=== PATIENT | female | born 1950 | race Caucasian/White ===

== ENCOUNTER 2018-01-25 15:06 | Inpatient (IN) | payer MEDICARE, OTHER ==
[2018-01-24 22:00] VITALS: BP 139/80
[~2018-01-25] VITALS: Ht 172.7 cm; Wt 89.0 kg
[~2018-01-25 15:06] MED LIST: BACDS; CHOL378P; CYCL-1; DICY10CA88; HYDR-3972; LOSA25TA12; ONDA4TAB12; PROP20TA6
[2018-01-25 16:19] LABS: BASOPHILS % (AUTO) 0.6 % (0-1); EOSINOPHILS # (AUTO) 0.1 X10'3 (0-0.9); EOSINOPHILS % (AUTO) 2.2 % (0-6); HEMATOCRIT 41.3 % (35.0-45.0); LYMPHOCYTES # (AUTO) 1.2 X10'3 (1.1-4.8); LYMPHOCYTES % (AUTO) 18.1 % (21-51); MEAN CORPUSCULAR HEMOGLOBIN 30.2 PG (27.0-31.0); MEAN CORPUSCULAR HGB CONC 33.9 % (33.0-36.5); MEAN PLATELET VOLUME 7.8 FL (7.4-10.4); MONOCYTES # (AUTO) 0.4 X10'3 (0-0.9); MONOCYTES % (AUTO) 5.8 % (2-12); NEUTROPHILS # (AUTO) 4.7 X10'3 (1.8-7.7); NEUTROPHILS % (AUTO) 73.3 % (42-75); PLATELET COUNT 308 X10'3 (140-440); RED BLOOD COUNT 4.64 X10'6 (4.20-5.60); RED CELL DISTRIBUTION WIDTH 13.6 % (11.5-14.5); WHITE BLOOD COUNT 6.4 X10'3 (4.5-11.0)
[2018-01-25 16:35] LABS: ALANINE AMINOTRANSFERASE 44 U/L (12-78); ALBUMIN 3.7 G/DL (3.4-5.0); ALBUMIN/GLOBULIN RATIO 1.1 (1.1-1.5); ALKALINE PHOSPHATASE 91 IU/L (46-116); ANION GAP 9 (8-16); ASPARTATE AMINO TRANSFERASE 18 U/L (10-37); BILIRUBIN,TOTAL 0.3 MG/DL (0.1-1.0); BLOOD UREA NITROGEN 21 MG/DL (7-18); BUN/CREATININE RATIO 22.8 (6.6-38.0); CALCIUM 9.6 MG/DL (8.5-10.1); CHLORIDE 105 MMOL/L (99-107); CREATININE 0.92 MG/DL (0.40-0.90); GLUCOSE 111 MG/DL (70-104); POTASSIUM 3.8 MMOL/L (3.5-5.1); SODIUM 142 MMOL/L (135-145); TOTAL CARBON DIOXIDE 28.1 MMOL/L (24-32); TOTAL PROTEIN 7.1 G/DL (6.4-8.2); eGFR 61 ML/MIN
[2018-01-25 16:42] LABS: PARTIAL THROMBOPLASTIN TIME 24 SECONDS (22-32); PROTHROMBIN TIME 9.9 SECONDS (9.0-12.0)
[2018-01-25 17:48] LABS: LIPASE 154 U/L (73-393)
[2018-01-25] MEDS ORDERED: LIDOcaine Viscous 15ml cup PO ONE (19:15)
[2018-01-25] MEDS ORDERED: magnesium hydroxide 30ml (MOM) UD suspension PO ONE (19:15)
[2018-01-25] MEDS ORDERED: famotidine 20mg tablet PO ONE (19:15)
[2018-01-25] MEDS ORDERED: aspirin 325mg tablet PO ONE (19:50)
[2018-01-25] MEDS ORDERED: normal saline 1000ml 1,000 ML IV SCH (21:11)
[2018-01-25] MEDS ORDERED: mag hydrox/Alum hydrox/simeth 30ml oral suspension PO PRN (21:15)
[2018-01-25] MEDS ORDERED: morphine 2 MG/ML inj. syringe IV PRN (21:15)
[2018-01-25] MEDS ORDERED: ondansetron/PF 4mg/2ml inj IV PRN (21:15)
[2018-01-25] MEDS ORDERED: magnesium hydroxide 30ml (MOM) UD suspension PO PRN (21:15)
[2018-01-25] MEDS ORDERED: metoprolol tartrate 50mg tablet PO ONE (21:15)
[2018-01-25] MEDS ORDERED: acetaminophen 325mg tablet PO PRN (21:15)
[2018-01-25 22:00] VITALS: BP 139/80
[2018-01-25 22:44] LABS: HEMOGLOBIN A1C 5.5 % (4.5-6.2)
[2018-01-26] VITALS (12 sets, daily range): BP systolic 105–135; BP diastolic 65–91
[2018-01-26 07:38] LABS: ALANINE AMINOTRANSFERASE 38 U/L (12-78); ALBUMIN 3.2 G/DL (3.4-5.0); ALBUMIN/GLOBULIN RATIO 1.1 (1.1-1.5); ALKALINE PHOSPHATASE 66 IU/L (46-116); ANION GAP 7 (8-16); ASPARTATE AMINO TRANSFERASE 21 U/L (10-37); BILIRUBIN,TOTAL 0.6 MG/DL (0.1-1.0); BLOOD UREA NITROGEN 18 MG/DL (7-18); BUN/CREATININE RATIO 21.7 (6.6-38.0); CALCIUM 9.2 MG/DL (8.5-10.1); CHLORIDE 105 MMOL/L (99-107); CREATININE 0.83 MG/DL (0.40-0.90); GLUCOSE 105 MG/DL (70-104); POTASSIUM 4.1 MMOL/L (3.5-5.1); SODIUM 141 MMOL/L (135-145); TOTAL CARBON DIOXIDE 28.6 MMOL/L (24-32); TOTAL PROTEIN 6.1 G/DL (6.4-8.2); eGFR 69 ML/MIN
[2018-01-26 07:41] LABS: CHOL/HDL RATIO 3.7 (0.00-4.99); CHOLESTEROL 177 MG/DL (0-200); HDL CHOLESTEROL 48 MG/DL (35-60); LDL CHOLESTEROL 112 MG/DL (50-100); TRIGLYCERIDES 155 MG/DL (20-135)
[2018-01-26] MEDS ORDERED: aspirin 325mg tablet, delayed-release (Ecotrin) PO SCH (08:00)
[2018-01-26] MEDS ORDERED: heparin, porcine 5000 units/ml vial SQ SCH (08:00)
[2018-01-26] MEDS ORDERED: nitroGLYCERIN 0.4mg SUBLingual tab SL PRN (08:10)
[2018-01-26] MEDS ORDERED: metoprolol tartrate 1mg/ml inj IV PRN (08:10)
[2018-01-26] MEDS ORDERED: aminophylline 250mg/10ml inj. IV PRN (08:10)
[2018-01-26] MEDS ORDERED: regadenoson 0.4mg/5ml syringe IV PRN (08:10)
[2018-01-26] MEDS ORDERED: potassium Cl 20 mEq SR tablet PO PRN ×2 (10:50)
[2018-01-26] MEDS ORDERED: magnesium 4gm in 100ml NS 100 ML IV PRN (10:50)
[2018-01-26] MEDS ORDERED: magnesium Cl slow-release 64mg tablet PO PRN (10:50)
[2018-01-26] MEDS ORDERED: potassium Cl 40MEQ/NS 500ml 500 ML IV PRN ×2 (10:50)
[2018-01-26] MEDS ORDERED: atorvastatin 20mg tablet PO SCH (10:55)
[2018-01-26] MEDS ORDERED: regadenoson 0.4mg/5ml syringe IV ONE (13:22)
[2018-01-26] MEDS ORDERED: aminophylline inj. 0 ML IV ONE (13:22)
[2018-01-26] MEDS ORDERED: CARV-49 PO (15:32)
[2018-01-26] MEDS ORDERED: PANT40TA4 PO (15:32)
[2018-01-26] MEDS ORDERED: ATOR20TA66 PO (15:32)
[2018-01-26] MEDS ORDERED: ASPI-611 PO (15:32)
[2018-01-26] MEDS ORDERED: LOSA50TA21 PO (15:32)
== END 2018-01-26 16:56 | disposition home or self-care (01) | DRG 392 ==
LOC: ER 15:06 → ED HOLD 21:11 → PCU 3S 23:00
PROVIDERS: ADMIT Internal Medicine; ATTEND Family Medicine
PROC: 4A02XM4 Measurement of Cardiac Total Activity, External Approach (ICD-10-PCS; principal; 2018-01-26)
PROC: 3E033HZ Introduction of Radioactive Substance into Peripheral Vein, Percutaneous Approach (ICD-10-PCS; 2018-01-26)
DX: K21.9 Gastro-esophageal reflux disease without esophagitis (principal); E78.00 Pure hypercholesterolemia, unspecified; E78.5 Hyperlipidemia, unspecified; I10 Essential (primary) hypertension; F17.210 Nicotine dependence, cigarettes, uncomplicated; I25.10 Atherosclerotic heart disease of native coronary artery without angina pectoris; M47.816 Spondylosis without myelopathy or radiculopathy, lumbar region; Z90.710 Acquired absence of both cervix and uterus; Z88.0 Allergy status to penicillin; Z79.899 Other long term (current) drug therapy; Z86.010 Personal history of colon polyps; Z82.49 Family history of ischemic heart disease and other diseases of the circulatory system; Z71.6 Tobacco abuse counseling
CPT/HCPCS: 36415; 71045; 78452; 80053; 80061; 83036; 83690; 84484; 85025; 85610; 85730; 87070; 93005; 93017; 93306; 99285; A9500; J0280; J1644; J2270

== ENCOUNTER 2021-06-08 05:31 | Day surgery (SDC) | payer MEDICARE, OTHER ==
[2021-05-31 13:23] LABS: CLARITY,URINE CLEAR (Clear); COLOR,URINE YELLOW (Yellow); GLUCOSE, URINE NEGATIVE (Neg); KETONES,URINE TRACE mg/dl (Neg); LEUKOCYTE ESTERASE ,URINE NEGATIVE (Neg); NITRITES, URINE NEGATIVE (Neg); OCCULT BLOOD,URINE NEGATIVE (Neg); PH,URINE 5.5 (4.8-8.0); PROTEIN,URINE NEGATIVE (Neg); UROBILINOGEN,URINE 0.2 E.U/dL (0.2-1.0)
[2021-05-31 13:25] LABS: UA COLLECTION TYPE CLN CATCH MIDSTREAM
[2021-05-31 13:27] LABS: BASOPHILS % (AUTO) 0.3 % (0-1); EOSINOPHILS % (AUTO) 0.1 % (0-6); LYMPHOCYTES # (AUTO) 1.1 X10'3 (1.1-4.8); MEAN CORPUSCULAR HEMOGLOBIN 29.7 PG (27.0-31.0); MEAN PLATELET VOLUME 7.8 FL (7.4-10.4); MONOCYTES # (AUTO) 0.3 X10'3 (0-0.9); MONOCYTES % (AUTO) 2.5 % (2-12); NEUTROPHILS # (AUTO) 10.4 X10'3 (1.8-7.7); NEUTROPHILS % (AUTO) 88.1 % (42-75); PRE OP HEMATOCRIT 43.7 % (35.0-45.0); PRE OP HEMOGLOBIN 14.4 g/dL (12.0-16.0); PRE OP PLATELET COUNT 340 X10'3 (140-440); RED BLOOD COUNT 4.86 X10'6 (4.20-5.60); RED CELL DISTRIBUTION WIDTH 13.6 % (11.5-14.5)
[2021-05-31 13:41] LABS: ALBUMIN 3.8 G/DL (3.4-5.0); ALBUMIN/GLOBULIN RATIO 1.3 (1.1-1.5); ALKALINE PHOSPHATASE 84 IU/L (46-116); BLOOD UREA NITROGEN 23 MG/DL (7-18); BUN/CREATININE RATIO 25.6 (6.6-38.0); CALCIUM 9.8 MG/DL (8.5-10.1); CHLORIDE 102 MMOL/L (99-107); PRE OP ALT 57 U/L (30-65); PRE OP ANION GAP 10 (8-16); PRE OP AST 23 U/L (10-37); PRE OP BILIRUB, TOTAL 0.4 MG/DL (0.0-1.0); PRE OP GLUCOSE 129 MG/DL (70-104); PRE OP POTASSIUM 4.7 MMOL/L (3.4-5.1); PRE OP SODIUM 140 MMOL/L (135-145); TOTAL PROTEIN 6.7 G/DL (6.4-8.2); eGFR 62 ML/MIN
[~2021-06-08] VITALS: Ht 172.7 cm; Wt 95.3 kg
[2021-06-08] VITALS (10 sets, daily range): BP systolic 132–165; BP diastolic 83–88
[~2021-06-08 05:31] MED LIST changes: +ASPI81TA52 PO; +ATOR20TA PO; -BACDS; +CARV6.253 PO; -CHOL378P; -CYCL-1; -DICY10CA88; -HYDR-3972; -LOSA25TA12; +LOSA25TA96 PO; +OMEP20CA16 PO; -ONDA4TAB12; -PROP20TA6; +clindamycin-Cleocin 900mg/D5W 50 ML IV ONE; +famotidine 20mg tablet PO ONE; +ringers solution, lacted 1,000 ML IV SCH
[2021-06-08] MEDS ORDERED: CETI10CA19 PO (06:18)
[2021-06-08] MEDS ORDERED: ALBUTEROL (06:18)
[2021-06-08] MEDS ORDERED: PRED20TA PO (06:18)
[2021-06-08] MEDS ORDERED: BUPIVAcaine 0.5% inj/PF 30 ML ONE (07:12)
[2021-06-08] MEDS ORDERED: lidocaine 1%/epinephrine 1:100,000 inj. 50ml multi-dose vial ONE (07:12)
[2021-06-08] MEDS ORDERED: midazolam 1 mg/ML 2ml injection ONE (07:54)
[2021-06-08] MEDS ORDERED: LIDOcaine 2% (20mg/ml) 5ml vial ONE (07:54)
[2021-06-08] MEDS ORDERED: FENTANYL CITRATE/PF 50 MCG/1 ML VIAL ONE (07:54)
[2021-06-08] MEDS ORDERED: propofol inj 20 ML IV ONE (07:55)
[2021-06-08] MEDS ORDERED: dexamethasone sod phosphate 4mg/ml inj. ONE (07:55)
[2021-06-08] MEDS ORDERED: ondansetron/PF 4mg/2ml inj ONE (07:55)
[2021-06-08] MEDS ORDERED: ondansetron/PF 4mg/2ml inj IV PRN (08:00)
[2021-06-08] MEDS ORDERED: morphine 4 MG/ML inj SYRINge IV PRN (08:00)
[2021-06-08] MEDS ORDERED: labetalol 20mg/4ml (5mg/ml) syringe IV PRN (08:00)
[2021-06-08] MEDS ORDERED: fentaNYL/PF 50MCG/1 ML 2ML syringe IV PRN ×2 (08:00)
[2021-06-08] MEDS ORDERED: BUPIVAcaine 0.5% inj/PF 30 ml vial IJ ONE (08:00)
[2021-06-08] MEDS ORDERED: morphine 2 MG/ML inj. syringe IV PRN (08:00)
[2021-06-08] MEDS ORDERED: ringers solution, lacted 1,000 ML IV SCH (08:00)
[2021-06-08] MEDS ORDERED: hydrALAZINE 20mg/ml inj. IV PRN (08:00)
[2021-06-08] MEDS ORDERED: ePHEDrine 50MG/ML INJ. ONE (08:57)
--- NOTE | 2021-06-08 09:41 | NUR ---
Received from OR via [facility], accompanied by Anesthesiologist DR HERNANDEZ and report given by Anesthesiolgist. PT PRESENTS WITH PIV 20G RIGHT HAND, ESTEFANY ON RIGHT TEMPORAL, VSS. Addendum: 06/08/21 at 0954 by Aisha Campbell RN RN Amended: Links added.
[2021-06-08] MEDS ORDERED: traMADol 50MG tablet PO ONE (10:20)
--- NOTE | 2021-06-08 10:28 | NUR ---
PT IS CURRENTLY SITTING UP IN BED, EATING CRACKERS AND ICE CHIPS. Addendum: 06/08/21 at 1028 by Aisha Campbell RN, RN Amended: Links added.
--- NOTE | 2021-06-08 10:51 | NUR ---
PATIENT [id number], DENIES PAIN, V/S WNL, SCD OFF, I HAVE REVIEWED D/C INSTRUCTIONS WITH PATIENT and they have verbalized understanding patient d/c home with all belongings and family gave transport home. Addendum: 06/08/21 at 1119 by Aisha Campbell RN, RN Amended: Links added.
== END 2021-06-08 10:51 | disposition home or self-care (01) ==
LOC: PAS 05:31
PROVIDERS: ATTEND Surgery
DX: G44.89 Other headache syndrome (principal); J44.9 Chronic obstructive pulmonary disease, unspecified; K21.9 Gastro-esophageal reflux disease without esophagitis; I10 Essential (primary) hypertension; E78.5 Hyperlipidemia, unspecified; E66.9 Obesity, unspecified; Z68.31 Body mass index [BMI] 31.0-31.9, adult; G47.30 Sleep apnea, unspecified; F17.210 Nicotine dependence, cigarettes, uncomplicated; M19.90 Unspecified osteoarthritis, unspecified site; G43.909 Migraine, unspecified, not intractable, without status migrainosus; Z90.49 Acquired absence of other specified parts of digestive tract; Z90.710 Acquired absence of both cervix and uterus; Z98.890 Other specified postprocedural states; Z88.0 Allergy status to penicillin
CPT/HCPCS: 36415; 37609; 80053; 81003; 82948; 85025; J1100; J2250; J2405; J2704; J3010; J3490; J7120; S0020; Z7506; Z7508; Z7512; 88305; 88313; A4215; A4618; A6258; A7000